=== PATIENT | female | born 1945 | race Native Hawaiian/Other Pacific Islander ===

== ENCOUNTER 2020-06-06 21:23 | Emergency (ER) | payer OTHER ==
[~2020-06-06] VITALS: Ht 160 cm; Wt 86.2 kg
[2020-06-07 00:30] VITALS: BP 138/88; TEMP 98.1
== END 2020-06-07 00:30 | disposition home or self-care (01) ==
LOC: ED 21:42
PROC: 0HQ0XZZ Repair Scalp Skin, External Approach (ICD-10-PCS; principal; 2020-06-06)
DX: S01.01XA Laceration without foreign body of scalp, initial encounter (principal); W05.2XXA Fall from non-moving motorized mobility scooter, initial encounter; Y92.512 Supermarket, store or market as the place of occurrence of the external cause
CPT/HCPCS: 99283; J1100